=== PATIENT | female | born 1935 | race Caucasian/White ===

== ENCOUNTER 2020-11-04 14:09 | Observation (INO) | payer OTHER, SELFPAY ==
[2020-11-04] VITALS (12 sets, daily range): BP systolic 130–181; BP diastolic 63–83; PULSE 66–81; RESP 12–27; TEMP 36.6–36.8; O2SAT 94–100; BMI 22.6
--- NOTE | 2020-11-04 14:35 | EKG12_ITS ---
Test Reason : Blood Pressure : / mmHG Vent. Rate : 066 BPM Atrial Rate : 066 BPM P-R Int : 160 ms QRS Dur : 102 ms QT Int : 388 ms P-R-T Axes : 038 -26 048 degrees QTc Int : 406 ms Sinus rhythm with marked sinus arrhythmia Otherwise normal ECG Confirmed by ARABELLA GONZALEZ, JERONIMO ([id number]), communications editor KARMA ABAD ([id number]) on 11/09/2020 7:46:02 AM Referred By: Confirmed By:JERONIMO BELL MD
--- NOTE | 2020-11-04 14:40 | RAD_ITS ---
EXAM: XR CHEST, 1 VIEW CLINICAL INDICATION: chest pain TECHNIQUE: Frontal view of the chest. This report was created using [employer] report generation technology. COMPARISON: None. FINDINGS: LUNGS AND PLEURAL SPACES: Unremarkable. No consolidation or edema. No pneumothorax. No effusion. HEART: Unremarkable. Cardiac silhouette not enlarged. MEDIASTINUM: Central airways and mediastinal contour are unremarkable. BONES/JOINTS: Unremarkable. SOFT TISSUES: Unremarkable. RAD/Chest 1 View (Portable) IMPRESSION: No radiographic evidence of acute cardiopulmonary disease. Electronically Signed: Robinson Chakraborty MD at 14:56 EDT , Service support ,
[2020-11-04 14:43] LABS: Basophil# 0.04 X10^3/uL; Basophil% 0.7 % (0-1); Eosinophil# 0.11 X10^3/uL; Eosinophils% 1.9 % (0-5); Hemoglobin 12.7 g/dL (12.0-15.0); Lymphocyte % 19.4 % (19-41); Mean Corp Hgb Conc 33.4 g/dL (32-36); Mean Corpuscular Volume 89.6 fL (81-99); Monocyte# 0.41 X10^3/uL; Monocyte% 7.2 % (0-10); NRBC Flagged by Analyzer 0 % (0-5); Neutrophil % 70.6 % (47-70); Platelet Count 280 K/mm3 (150-450); RBC Distribution Width CV 13.1 % (11.6-14.6); RBC Distribution Width SD 42.5 fl (35.1-43.9); Red Blood Count 4.24 M/mm3 (4.2-5.4); White Blood Count 5.7 K/mm3 (4.4-11.0)
--- NOTE | 2020-11-04 14:47 | ED.VIS.CHEST ---
HPI History of Present Illness Chief Complaint: Chest Pain Informant: patient Onset/Context/Timing Onset: Weeks (2) Activity at onset: gradual Timing: Intermittent and Lasts (2 days) Quality: Positive for Stabbing Location: Left Chest Worsened By: Movement of Torso Relieved By: Nothing Associated Symptoms: Positive for Dyspnea; Negative for Nausea, Vomiting, Diaphoresis, Cough, Fever, Lightheadedness, Acid Reflux and Palpitations Narrative Narrative: Patient presents with chest pain that began approximately 2 months ago. Patient states it has been intermittent. Patient states it has been constant for the past couple days. Patient states the pain is stabbing. Patient states the pain is over the left side of her chest but also there is some mild pain on the right. Patient states her pain is worse with movement. Patient states nothing seems to help with the pain. Patient admits to some shortness of breath because it hurts to take a deep breath. Patient also admits to some palpitations. CVD Risk Factors: Positive for Hypertension and Hypercholesterolemia; Negative for Diabetes, Family History 1' </=55 and Smoking PE Risk Factors: Positive for Prior DVT or PE; Negative for Recent Travel/Surgery, Recent Immobilization, Cancer and OCP + Smoking + >/=35 PFSH PFSH Medical History DVT (deep venous thrombosis) Mandible fracture Myocardial infarct Home Medications aspirin 81 mg PO DAILY 11/04/20 [History Last Taken Unknown] atorvastatin 20 mg PO DAILY 11/04/20 [History Last Taken Unknown] capsicum (cayenne) [[facility] PDR] 894 mg PO DAILY 11/04/20 [History Last Taken Unknown] lisinopril 5 mg PO DAILY 11/04/20 [History Last Taken Unknown] nitroglycerin 0.4 mg SUBLINGUAL Q5M PRN 11/04/20 [History Last Taken Unknown] Allergy/AdvReac Type Severity Reaction Status Date / Time No Known Allergies Allergy Verified 11/04/20 14:12 Social History Smoking Status: Never smoker ROS ROS ED Constitutional Constitutional ED: Denies chills or fever(s) Eyes Eyes: Denies blurry vision or change in vision ENT ENT ED: Denies rhinorrhea or sore throat Cardiovascular Cardiovascular: Reports chest pain and palpitations Respiratory/Chest Respiratory/Chest: Reports dyspnea; Denies cough Gastrointestinal Gastrointestinal: Reports nausea; Denies abdominal pain or vomiting Genitourinary Genitourinary ED: Denies dysuria or hematuria Musculoskeletal Musculoskeletal: Reports back pain; Denies neck pain Integumentary Denies abscess or rash Neurologic Neurologic: Denies headache(s) or weakness Allergic/Immunologic Allergic/Immunologic ED: Denies mouth swelling or urticaria EXAM Physical Exam Const Vital Signs: 11/04/20 14:12 11/04/20 14:22 11/04/20 14:35 Temperature 97.8 F Temperature Source Oral Pulse Rate 66 69 Respiratory Rate 20 H 20 H Respiratory Effort Non-Labored Short of Breath Respiratory Pattern Normal Blood Pressure 151/83 H Blood Pressure Mean 105 Pulse Ox 97 97 98 Oxygen Delivery Method Room Air Room Air Room Air 11/04/20 15:11 11/04/20 16:00 11/04/20 17:02 Temperature Temperature Source Pulse Rate 67 73 72 Respiratory Rate 16 12 27 H Respiratory Effort Respiratory Pattern Blood Pressure 134/70 H 153/69 H 148/79 H Blood Pressure Mean 91 97 102 Pulse Ox 95 96 98 Oxygen Delivery Method Room Air Room Air Room Air 11/04/20 18:00 11/04/20 19:30 11/04/20 20:22 Temperature Temperature Source Pulse Rate 81 70 78 Respiratory Rate 18 18 18 Respiratory Effort Respiratory Pattern Blood Pressure 130/63 H 142/71 H 154/70 H Blood Pressure Mean 85 94 98 Pulse Ox 100 95 98 Oxygen Delivery Method Room Air Room Air Room Air 11/04/20 21:30 11/04/20 22:30 11/04/20 23:02 Temperature 98.2 F Temperature Source Oral Pulse Rate 75 69 71 Respiratory Rate 16 18 18 Respiratory Effort Respiratory Pattern Blood Pressure 181/77 H 161/73 H 165/76 H Blood Pressure Mean 111 102 105 Pulse Ox 96 95 94 Oxygen Delivery Method Room Air Room Air Room Air Positive well nourished and well developed General Appearance ED: well developed HEENT normocephalic and atraumatic Eyes PERRL and EOMs intact bilaterally Neck supple and no JVD Chest Wall inspection of chest normal Chest: tenderness costochondral junction Resp normal respiratory effort and clear to auscultation bilaterally Effort and Inspection: Negative for respiratory distress Cardio regular rate, regular rhythm and no murmurs GI normal to inspection, nondistended, normoactive bowel sounds, soft to palpation, non-tender and non-distended Extremity normal to inspection General Extremety ED: Negative for edema or tenderness General Extremity: Negative for edema Neuro oriented x3, CN's II-XII intact bilaterally and no sensory deficits noted Sensorium / Orientation: awake and alert Motor Exam: strength 5/5 throughout Psych mental status grossly normal Heart Score History: Slightly/Non-Suspicious ECG: Normal Age: >/= 65 years Risk Factors: >/= 3 Risk Factors or History of CAD Troponin: </= Normal Limit Score: 4 MDM MDM MDM Narrative Medical decision making narrative: EKG was obtained. On my interpretation, it showed a normal sinus rhythm with a rate of 66. MA interval, QRS interval, and QTc intervals were all normal. [place] was normal. There are no acute ST or T wave changes. Portable 1 view chest x-ray was obtained. On my interpretation, lung james are clear. There is normal cardiac silhouette. Bony thorax is normal. There is no acute process noted. Radiologist also interpreted the x-ray and agrees. CBC and basic metabolic profile were within normal limits. Initial high-sensitivity troponin was 85. 2-hour repeat high-sensitivity troponin was 88. Family is concerned that the patient was getting distended in her abdomen. Because of this, CT scan of the abdomen pelvis with oral and IV contrast was obtained. There is evidence of gastritis. There is a hemangioma in the liver. There are gallstones noted. There is no acute abnormality noted. This was interpreted by the radiologist and reviewed by myself. Patient was given aspirin here. Discussed with the hospitalist. He will admit the patient to his service. He added on a lipase. This came back elevated at 1410. Patient will be admitted to PCU. Lab Data Attestation: I reviewed the patient's lab results. Labs: Laboratory Results - last 24 hr 11/04/20 11/04/20 11/04/20 13:22 13:22 17:23 WBC 5.7 RBC 4.24 Hgb 12.7 Hct 38.0 MCV 89.6 MCH 30.0 MCHC 33.4 RDW Std Deviation 42.5 RDW Coeff of [place]il[place] 13.1 Plt Count 280 MPV 11.0 Immature Gran % (Auto) 0.200 Neut % (Auto) 70.6 H Lymph % (Auto) 19.4 [place] % (Auto) 7.2 Eos % (Auto) 1.9 Baso % (Auto) 0.7 Absolute Neuts (auto) 4.0 Absolute Lymphs (auto) 1.10 Nucleated RBC % 0 Sodium 141 Potassium 4.0 Chloride 107 Carbon Dioxide 28.0 Anion Gap 6 BUN 15 Creatinine 0.88 Estim Creat Clear Calc 36.55 Est GFR (MDRD) Af Amer 79 Est GFR (MDRD) Non-Af 66 BUN/Creatinine Ratio 17.1 Glucose 145 H Calcium 9.6 Troponin I High Sens 85 H 88 H Lipase 11/04/20 17:23 WBC RBC Hgb Hct MCV MCH MCHC RDW Std Deviation RDW Coeff of [place] Plt Count MPV Immature Gran % (Auto) Neut % (Auto) Lymph % (Auto) [place] % (Auto) Eos % (Auto) Baso % (Auto) Absolute Neuts (auto) Absolute Lymphs (auto) Nucleated RBC % Sodium Potassium Chloride Carbon Dioxide Anion Gap BUN Creatinine Estim Creat Clear Calc Est GFR (MDRD) Af Amer Est GFR (MDRD) Non-Af BUN/Creatinine Ratio Glucose Calcium Troponin I High Sens Lipase 1410 H Radiography Chest X-Ray - ED: 1 View, Read by ED Physician, Read by Radiologist and Normal Diagnostic Testing: Radiology Impression Chest X-Ray 11/04/20 14:40 IMPRESSION: No radiographic evidence of acute cardiopulmonary disease. Electronically Signed: Robinson Chakraborty MD at 14:56 EDT , Service support , Abdomen/Pelvis CT 11/04/20 20:05 IMPRESSION: 1. There is peripheral puddling lesion in the mid aspect of the liver. This suggests a hemangioma. However, other etiologies are not excluded. Scattered poorly defined hypodensities in the liver. Triple phase liver protocol is recommended to evaluate. 2. Gallstones visualized in the gallbladder. 3. Focal wall thickening of the antrum of stomach. This can suggest a gastritis. 4. Constipation. Electronically Signed: Robinson Chakraborty MD at 22:04 EDT , Service support , Discharge Plan Dx/Rx/DC Orders Clinical Impression: Chest pain, Acute pancreatitis Disposition Disposition: Acute Care Hospital [facility] Discharge Date/Time: 11/05/20 00:26
[2020-11-04 15:00] LABS: Anion Gap 6 (5-15); BUN 15 mg/dL (7-18); BUN/Creat Ratio 17.1 RATIO (10-20); Calcium,Total 9.6 mg/dL (8.5-10.1); Chloride 107 mmol/L (98-107); Creatinine, Serum 0.88 mg/dL (0.55-1.02); EST Glomerular Filtration Rate 66 mL/min (>60); Est Glom Filt Rate - Afr Amer 79 mL/min (>60); Estimated Creatinine Clearance 36.55 ml/min; Glucose 145 mg/dL (74-106); Sodium Level 141 mmol/L (136-145); Troponin-I HS 85 pg/mL (3.0-54.0)
[2020-11-04 18:26] LABS: Troponin-I HS 88 pg/mL (3.0-54.0)
--- NOTE | 2020-11-04 20:05 | CT_ITS ---
EXAM: CT ABDOMEN AND PELVIS WITH INTRAVENOUS CONTRAST CLINICAL INDICATION: Abdominal pain -- IV PO Contrast TECHNIQUE: Helically acquired images were obtained of the abdomen and pelvis with intravenous contrast. This CT exam was performed using one or more of the following dose reduction techniques: automated exposure control, adjustment of the mA and/or kV according to patient size, and/or use of iterative reconstruction technique. This report was created using [employer] report generation technology. CONTRAST: Oral and amp; IV Gastrografin and amp; 75mL Isovue-300 COMPARISON: None. FINDINGS: LOWER THORAX: There are coronary arterial calcifications. The heart is enlarged. Lung bases are clear. No significant pericardial effusion. ABDOMEN: LIVER: There is peripheral puddling lesion in the mid aspect of the liver. This suggests a hemangioma. However, other etiologies are not excluded. Scattered poorly defined hypodensities in the liver. Triple phase liver protocol is recommended to evaluate. There is intrahepatic ductal dilation. GALLBLADDER AND BILE DUCTS: Gallstones visualized in the gallbladder. PANCREAS: Unremarkable. No focal cystic or solid mass. SPLEEN: Unremarkable. Normal size without focal cystic or solid mass. ADRENALS: Unremarkable. No nodules. KIDNEYS AND URETERS: Unremarkable. Normal renal size and position. No hydronephrosis. STOMACH AND BOWEL: Focal wall thickening of the antrum of stomach. This can suggest a gastritis. Stool throughout the colon. No stomach or bowel distention. PELVIS: APPENDIX: No evidence of acute appendicitis. BLADDER: Unremarkable. REPRODUCTIVE: The uterus is lobulated in contour. There are multiple partially calcified masses in the uterus. This is consistent for a fibroid/ myomatous uterus. ABDOMEN and PELVIS: INTRAPERITONEAL SPACE: Unremarkable. No ascites or other fluid collection. No free air. BONES/JOINTS: There is bilateral neural foraminal stenosis at L4-5 and L5-S1. Old appearing compression deformity of T12 No suspicious lytic or blastic abnormality. SOFT TISSUES: Unremarkable. No discrete abdominal or pelvic wall hernia. VASCULATURE: There are calcifications of the abdominal aorta. This is consistent for atherosclerotic disease. There is no abdominal aortic aneurysm. LYMPH NODES: Unremarkable. No enlarged lymph nodes. OTHER FINDINGS: Vacuum disc phenomenon. CT/Abdomen/Pelvis WITH Contrast IMPRESSION: 1. There is peripheral puddling lesion in the mid aspect of the liver. This suggests a hemangioma. However, other etiologies are not excluded. Scattered poorly defined hypodensities in the liver. Triple phase liver protocol is recommended to evaluate. 2. Gallstones visualized in the gallbladder. 3. Focal wall thickening of the antrum of stomach. This can suggest a gastritis. 4. Constipation. Electronically Signed: Robinson Chakraborty MD at 22:04 EDT , Service support ,
--- NOTE | 2020-11-04 23:15 | HP.PCM_ITS ---
Documented by User: KACI Dyson 11/04/20 23:30 HPI - General General Date of Admission: 11/04/20 Date of Service: 11/04/20 Chief Complaint: Chest and abdominal pain HPI Narrative KERRY ROGERS, is a 85 F who presents with complaints of intermittent abdominal and chest pain over the past 6 weeks. Patient states that approximately 6 weeks ago she was initiated on medications for hypertension and hyperlipidemia and that symptoms began shortly after medication initiation. Patient reports that prior to this patient was not on any prescription medications. Patient states that she feels that her abdomen is tender and more swollen than it usually is. Patient reports that she does have a history of myocardial infarction on 09/23/2020. Patient denies fever, chills, cough, nausea, vomiting, diarrhea, constipation. [facility] Medical History DVT (deep venous thrombosis) Mandible fracture Myocardial infarct Home Medications aspirin 81 mg PO DAILY 11/04/20 [History Last Taken Unknown] atorvastatin 20 mg PO DAILY 11/04/20 [History Last Taken Unknown] capsicum (cayenne) [[facility] PDR] 894 mg PO DAILY 11/04/20 [History Last Taken Unknown] lisinopril 5 mg PO DAILY 11/04/20 [History Last Taken Unknown] nitroglycerin 0.4 mg SUBLINGUAL Q5M PRN 11/04/20 [History Last Taken Unknown] Allergy/AdvReac Type Severity Reaction Status Date / Time No Known Allergies Allergy Verified 11/04/20 14:12 Social History Smoking Status: Never smoker ROS Constitutional Constitutional: Denies anorexia, chills, fatigue, fever(s), malaise or weakness Cardiovascular Cardiovascular: Reports chest pain; Denies edema, palpitations or syncope Respiratory/Chest Respiratory/Chest: Denies cough, shortness of breath at rest or shortness of breath with exertion Gastrointestinal Gastrointestinal: Reports abdominal pain; Denies constipation, diarrhea, dyspepsia, nausea or vomiting Genitourinary Genitourinary: Denies dysuria Musculoskeletal Musculoskeletal: Denies back pain, extremity pain, joint pain or joint stiffness Integumentary Integumentary: Denies dry skin Neurologic Neurologic: Denies abnormal gait, abnormal speech, confusion or dizziness Psychiatric Psychiatric: Denies anxiety or depression Endocrine Endocrinology: Denies change in body appearance Hematologic/Lymphatic Hematologic/Lymphatic: Denies anemia, easy bleeding or easy bruising Vital Signs Vital Signs Vital Signs: 11/04/20 14:12 11/04/20 14:22 11/04/20 14:35 Temperature 97.8 F Temperature Source Oral Pulse Rate 66 69 Respiratory Rate 20 H 20 H Respiratory Effort Non-Labored Short of Breath Respiratory Pattern Normal Blood Pressure 151/83 H Blood Pressure Mean 105 Pulse Ox 97 97 98 Oxygen Delivery Method Room Air Room Air Room Air 11/04/20 15:11 11/04/20 16:00 11/04/20 17:02 Temperature Temperature Source Pulse Rate 67 73 72 Respiratory Rate 16 12 27 H Respiratory Effort Respiratory Pattern Blood Pressure 134/70 H 153/69 H 148/79 H Blood Pressure Mean 91 97 102 Pulse Ox 95 96 98 Oxygen Delivery Method Room Air Room Air Room Air 11/04/20 18:00 11/04/20 19:30 11/04/20 20:22 Temperature Temperature Source Pulse Rate 81 70 78 Respiratory Rate 18 18 18 Respiratory Effort Respiratory Pattern Blood Pressure 130/63 H 142/71 H 154/70 H Blood Pressure Mean 85 94 98 Pulse Ox 100 95 98 Oxygen Delivery Method Room Air Room Air Room Air 11/04/20 21:30 11/04/20 22:30 11/04/20 23:02 Temperature 98.2 F Temperature Source Oral Pulse Rate 75 69 71 Respiratory Rate 16 18 18 Respiratory Effort Respiratory Pattern Blood Pressure 181/77 H 161/73 H 165/76 H Blood Pressure Mean 111 102 105 Pulse Ox 96 95 94 Oxygen Delivery Method Room Air Room Air Room Air Weight Weight: 119 lb 11.376 oz Body Mass Index (BMI) 22.6 Physical Exam Const alert, oriented x3 and no apparent distress General Appearance: cooperative HEENT normocephalic and head/scalp atraumatic Eyes conjunctivae normal and no scleral icterus Neck supple General: trachea midline Resp normal respiratory effort, normal air movement and clear to auscultation bilaterally Cardio regular rate, regular rhythm, S1 normal heart sound and S2 normal heart sound GI normal to inspection, nondistended, normoactive bowel sounds and soft to palpation Palpation: tender epigastric, LUQ and RUQ Extremity normal capillary refill and no clubbing, cyanosis or edema General Extremity: no tenderness to palpation of joints or extremities Skin General Skin Exam: no breakdown and turgor normal Lesions: no lesions Rashes: no rashes Neuro no focal motor deficits and no sensory deficits noted Speech: speech normal Motor Exam: Negative for general weakness Psych thought process normal, cooperative and affect normal Appearance: appropriate Results Lab / Micro Data Result Diagrams: 11/04/20 13:22 11/04/20 13:22 Labs: Laboratory Results - last 24 hr 11/04/20 13:22: WBC 5.7, RBC 4.24, Hgb 12.7, Hct 38.0, MCV 89.6, MCH 30.0, MCHC 33.4, RDW Std Deviation 42.5, RDW Coeff of [place]ilka 13.1, Plt Count 280, MPV 11.0, Immature Gran % (Auto) 0.200, Neut % (Auto) 70.6 H, Lymph % (Auto) 19.4, [place] % (Auto) 7.2, Eos % (Auto) 1.9, Baso % (Auto) 0.7, Absolute Neuts (auto) 4.0, Absolute Lymphs (auto) 1.10, Nucleated RBC % 0 11/04/20 13:22: Sodium 141, Potassium 4.0, Chloride 107, Carbon Dioxide 28.0, Anion Gap 6, BUN 15, Creatinine 0.88, Estim Creat Clear Calc 36.55, Est GFR (MDRD) Af Amer 79, Est GFR (MDRD) Non-Af 66, BUN/Creatinine Ratio 17.1, Glucose 145 H, Calcium 9.6, Troponin I High Sens 85 H 11/04/20 17:23: Troponin I High Sens 88 H Radiology Impression Chest X-Ray 11/04/20 14:40 IMPRESSION: No radiographic evidence of acute cardiopulmonary disease. Electronically Signed: Robinson Chakraborty MD at 14:56 EDT , Service support , Abdomen/Pelvis CT 11/04/20 20:05 IMPRESSION: 1. There is peripheral puddling lesion in the mid aspect of the liver. This suggests a hemangioma. However, other etiologies are not excluded. Scattered poorly defined hypodensities in the liver. Triple phase liver protocol is recommended to evaluate. 2. Gallstones visualized in the gallbladder. 3. Focal wall thickening of the antrum of stomach. This can suggest a gastritis. 4. Constipation. Electronically Signed: Robinson Chakraborty MD at 22:04 EDT , Service support , Assessment & Plan Assessment/Plan (1) Chest pain: QUALIFIERS: Chest pain type: unspecified Qualified Code(s): R07.9 - Chest pain, unspecified PLAN: 1. Chest pain -Admit to PCU for cardiac monitoring -Continue to trend cardiac enzymes, first 2 levels indeterminate. Labs otherwise within normal limits -Chest x-ray negative -Cardiac diet, NPO at midnight -Stress test ordered for am -PT and OT to eval and treat -Vital signs per protocol -CBC and BMP ordered for a.m. 2. Abdominal pain -Abdomen tender in all upper regions however worse in the epigastric area -CT demonstrates possible gastritis and constipation -Patient will be initiated on pantoprazole. IV dose ordered for tonight, will transition to p.o. in a.m. We will continue all home medications in relation to patient chronic diseases including hypertension hyperlipidemia. DVT prophylaxis-not indicated, encourage ambulation This patient was seen by KACI Dyson under the supervision of Dr. Koroma. Documented by User: Dr. Home Koroma MD 11/05/20 00:57 HPI - General General Date of Admission: 11/04/20 [facility] Medical History DVT (deep venous thrombosis) Mandible fracture Myocardial infarct Home Medications aspirin 81 mg PO DAILY 11/04/20 [History Last Taken Unknown] atorvastatin 20 mg PO DAILY 11/04/20 [History Last Taken Unknown] [facility]enne) [facility]] 894 mg PO DAILY 11/04/20 [History Last Taken Unknown] lisinopril 5 mg PO DAILY 11/04/20 [History Last Taken Unknown] nitroglycerin 0.4 mg SUBLINGUAL Q5M PRN 11/04/20 [History Last Taken Unknown] Allergy/AdvReac Type Severity Reaction Status Date / Time No Known Allergies Allergy Verified 11/04/20 14:12 Social History Smoking Status: Never smoker Results Lab / Micro Data Result Diagrams: 11/04/20 13:22 11/04/20 13:22 Charges/Coding Addendum Addendum: Patient was seen and examined independently. I agree with assessment and plan by KACI Dyson Patient is an 85-year-old female with a significant history of hypertension; hyperlipidemia and [place] who presents emergency department with upper abdominal pain that radiates to her back. The pain is sharp. Her pain is intermittent. Her pains worsens with moving; and improves with not moving. Physical exam: General: Well-nourished, well-developed. Head: Normocephalic, atraumatic, no tenderness Eyes: PERRLA, EOMI ENT, no trauma, moist mucous membranes, no rhinorrhea Neck: Nontender, full range of motion, no spinal tenderness, deformities, step- off CVS: Regular rate and rhythm. S1-S2 present. No murmur, gallop or rub. Respiratory : clear to auscultation bilaterally, chest wall nontender, no wheezing Abdomen: Soft, nontender, nondistended, normal bowel sounds, no masses : Deferred Back: Nontender, no CVA tenderness, no midline spinal tenderness, deformities, step-offs Extremities: Nontender full range of motion, no trauma Skin: Normal color, no trauma, abrasions Neuro: Alert, oriented, cranial nerves II through XII grossly intact. Psychiatry: Normal mood. Normal affect. Not depressed. Not anxious. Intractable abdominal pain Placed on a monitored bed at the PCU Actual CXR image was independently visualized. No acute cardiopulmonary process was noted. I agree with interpretation. Actual EKG tracing was independently visualized. EKG tracing showed sinus arrhythmia. Discussed with Emergency department doctor to give full dose aspirin. ASA 81 mg p.o. daily ordered SL NTG 0.4 mg prn as needed for chest pain ordered We will check lipid panel. Initial high sensitive troponin is mildly elevated; trend. Stat EKG as needed for chest pain Stress test in the AM if the cardiac enzymes are stable Give Protonix. A CT abdomen pelvis with gallstones in gallbladder; thickening of antrum of stomach suggestive of gastritis; and lesion in the liver for which a triple phase protocol was recommended. CT of abdomen triple phase liver protocol ordered. Lipase ordered returned elevated. Unremarkable per radiologist interpretation. Because of patient age cautious use of fluid ordered. Morphine as needed ordered. Repeat lipase in a.m. Hypertension Blood pressure is not within goal Lisinopril continued. Trend blood pressure and adjust blood pressure medications. DVT prophylaxis ordered: SCD Visit Charges OBSV E&M: 46905 Initial observation care L3
[2020-11-04] MEDS: Aspirin 81 MG TAB.CHEW 324 MG PO (23:39)
[2020-11-05 00:07] LABS: Lipase 1410 U/L (73-393)
[2020-11-05 00:40] VITALS: BP 103/48; PULSE 57; RESP 16; TEMP 36.6; O2SAT 96
[2020-11-05 01:09] VITALS: BMI 22.0
--- NOTE | 2020-11-05 01:09 | EKG12_ITS ---
Test Reason : CP ADMISSION Blood Pressure : / mmHG Vent. Rate : 074 BPM Atrial Rate : 074 BPM P-R Int : 170 ms QRS Dur : 106 ms QT Int : 396 ms P-R-T Axes : 049 -28 049 degrees QTc Int : 439 ms Sinus rhythm with marked sinus arrhythmia Septal infarct , age undetermined Abnormal ECG When compared with ECG of 04-NOV-2020 14:18, MANUAL COMPARISON REQUIRED, DATA IS UNCONFIRMED Confirmed by ARABELLA GONZALEZ, JERONIMO ([id number]), digital editor KARMA ABAD ([id number]) on 11/05/2020 12:39:48 PM Referred By: AYANNA Confirmed By:JERONIMO BELL MD
[2020-11-05 01:30] VITALS: PULSE 83
--- NOTE | 2020-11-05 01:32 | PCS.PANDOC ---
PANDEMIC DOCUMENTATION INITIATED: Date: 09/21/2020 Time: 190
[2020-11-05 01:44] LABS: Troponin-I HS 95 pg/mL (3.0-54.0)
[2020-11-05] MEDS: Ondansetron 4 MG/2 ML Vial IV (01:57)
[2020-11-05] MEDS: Morphine 2 MG/ML Syringe 1 MG IV (01:57)
[2020-11-05] MEDS: 0.9% Normal Saline 1,000 ML 100 ML IV (01:57)
[2020-11-05 02:48] VITALS: PULSE 64; RESP 16; O2SAT 96
[2020-11-05] MEDS: Aspirin E.C. 81 MG Tablet PO (06:06)
[2020-11-05] MEDS: Lisinopril 5 MG Tablet PO (06:07)
[2020-11-05 06:35] VITALS: BP 171/68; PULSE 64; RESP 16; TEMP 36.6; O2SAT 95
[2020-11-05 06:49] LABS: Absolute Lymphocyte Count 1.46 X10^3/uL (0.83-4.51); Absolute Neutrophil Count 2.8 X10^3/uL (2.0-7.7); Basophil# 0.02 X10^3/uL; Basophil% 0.4 % (0-1); Eosinophil# 0.12 X10^3/uL; Eosinophils% 2.4 % (0-5); Hematocrit 35.3 % (37-47); Hemoglobin 11.5 g/dL (12.0-15.0); Lymphocyte # 1.46 X10^3/ul (0.83-4.51); Lymphocyte % 29.8 % (19-41); Mean Corp Hgb Conc 32.6 g/dL (32-36); Mean Corpuscular Hgb 30.3 pg (27.0-32.0); Mean Corpuscular Volume 92.9 fL (81-99); Mean Platelet Vol. 10.2 fl (6.2-12.0); Monocyte# 0.47 X10^3/uL; Monocyte% 9.6 % (0-10); NRBC Flagged by Analyzer 0 % (0-5); Neutrophil # 2.82 X10^3/uL (2.7-7.7); Neutrophil % 57.6 % (47-70); Platelet Count 241 K/mm3 (150-450); RBC Distribution Width CV 13.1 % (11.6-14.6); RBC Distribution Width SD 44.4 fl (35.1-43.9); White Blood Count 4.9 K/mm3 (4.4-11.0)
[2020-11-05 07:22] LABS: Anion Gap 7 (5-15); BUN 13 mg/dL (7-18); BUN/Creat Ratio 15.7 RATIO (10-20); Calcium,Total 8.7 mg/dL (8.5-10.1); Chloride 106 mmol/L (98-107); Cholesterol 127 mg/dL (200); Creatinine, Serum 0.83 mg/dL (0.55-1.02); EST Glomerular Filtration Rate 70 mL/min (>60); Est Glom Filt Rate - Afr Amer 84 mL/min (>60); Estimated Creatinine Clearance 36.89 ml/min; Glucose 85 mg/dL (74-106); High Density Lipoprotein 66 mg/dL; Potassium 4.1 mmol/L (3.5-5.1); Sodium Level 141 mmol/L (136-145); Triglycerides 54 mg/dL; Very Low Density Lipoprotein 11 mg/dL (5-40)
[2020-11-05 07:25] VITALS: PULSE 66
[2020-11-05 07:26] LABS: Lipase 214 U/L (73-393)
[2020-11-05] MEDS: Pantoprazole Sodium 20 MG Tablet PO (07:52)
[2020-11-05 08:17] VITALS: O2SAT 95
--- NOTE | 2020-11-05 08:22 | PN.HOSP_ITS ---
Subjective Subjective Still with chest and abdominal pain. Had a stress test 6 weeks ago at [facility] that was normal. They do not want another stress. Objective Data Objective Data Vital Signs: Vital Signs Temp Pulse Resp BP Pulse Ox 36.6 C 66 16 171/68 H 95 11/05/20 06:35 11/05/20 07:25 11/05/20 06:35 11/05/20 06:35 11/05/20 08:17 Oxygen Delivery Method Room Air Weight: 51.165 kg Body Mass Index (BMI) 22.0 Intake & Output: Intake and Output for Last 24 Hours 11/03/20 11/04/20 11/05/20 23:59 23:59 23:59 Intake Total 110 / 110 Balance 110 / 110 Lab / Micro Data Result Diagrams: 11/05/20 06:20 11/05/20 06:20 Labs: Laboratory Results - last 24 hr 11/04/20 13:22: WBC 5.7, RBC 4.24, Hgb 12.7, Hct 38.0, MCV 89.6, MCH 30.0, MCHC 33.4, RDW Std Deviation 42.5, RDW Coeff of Yamilka 13.1, Plt Count 280, MPV 11.0, Immature Gran % (Auto) 0.200, Neut % (Auto) 70.6 H, Lymph % (Auto) 19.4, Baldwin % (Auto) 7.2, Eos % (Auto) 1.9, Baso % (Auto) 0.7, Absolute Neuts (auto) 4.0, Absolute Lymphs (auto) 1.10, Nucleated RBC % 0 11/04/20 13:22: Sodium 141, Potassium 4.0, Chloride 107, Carbon Dioxide 28.0, An ion Gap 6, BUN 15, Creatinine 0.88, Estim Creat Clear Calc 36.55, Est GFR (MDRD) Af Amer 79, Est GFR (MDRD) Non-Af 66, BUN/Creatinine Ratio 17.1, Glucose 145 H, Calcium 9.6, Troponin I High Sens 85 H 11/04/20 17:23: Troponin I High Sens 88 H 11/04/20 17:23: Lipase 1410 H 11/05/20 01:20: Troponin I High Sens 95 H 11/05/20 06:20: WBC 4.9, RBC 3.80 L, Hgb 11.5 L, Hct 35.3 L, MCV 92.9, MCH 30.3, MCHC 32.6, RDW Std Deviation 44.4 H, RDW Coeff of Yamilka 13.1, Plt Count 241, MPV 10.2, Immature Gran % (Auto) 0.200, Neut % (Auto) 57.6, Lymph % (Auto) 29.8, Baldwin % (Auto) 9.6, Eos % (Auto) 2.4, Baso % (Auto) 0.4, Absolute Neuts (auto) 2.8, Absolute Lymphs (auto) 1.46, Nucleated RBC % 0 11/05/20 06:20: Sodium 141, Potassium 4.1, Chloride 106, Carbon Dioxide 28.0, Anion Gap 7, BUN 13, Creatinine 0.83, Estim Creat Clear Calc 36.89, Est GFR (MDRD) Af Amer 84, Est GFR (MDRD) Non-Af 70, BUN/Creatinine Ratio 15.7, Glucose 85, Calcium 8.7, Triglycerides 54, Cholesterol 127, LDL Cholesterol 50, VLDL Cholesterol 11, HDL Cholesterol 66 11/05/20 06:20: Lipase 214 Radiography Diagnostic Testing: Radiology Impression Chest X-Ray 11/04/20 14:40 IMPRESSION: No radiographic evidence of acute cardiopulmonary disease. Electronically Signed: Robinson Chakraborty MD at 14:56 EDT , Service support , Abdomen/Pelvis CT 11/04/20 20:05 IMPRESSION: 1. There is peripheral puddling lesion in the mid aspect of the liver. This suggests a hemangioma. However, other etiologies are not excluded. Scattered poorly defined hypodensities in the liver. Triple phase liver protocol is recommended to evaluate. 2. Gallstones visualized in the gallbladder. 3. Focal wall thickening of the antrum of stomach. This can suggest a gastritis. 4. Constipation. Electronically Signed: Robinson Chakraborty MD at 22:04 EDT , Service support , Physical Exam Const alert HEENT Head and Scalp: normocephalic Resp normal respiratory effort, no retractions, no use of accessory muscles and clear to auscultation bilaterally Cardio regular rate, regular rhythm, S1 normal heart sound and S2 normal heart sound GI normal to inspection, nondistended, normoactive bowel sounds, soft to palpation, non-tender and non-distended Extremity normal to inspection Skin no rashes or lesions noted and no wounds Neuro Sensorium / Orientation: awake and alert Psych Psych Narrative: flat affect Assessment & Plan Assessment/Plan (1) Acute pancreatitis: QUALIFIERS: Pancreatitis type: unspecified pancreatitis type Acute pancreatitis complication: no infection or necrosis Qualified Code(s): K85.90 - Acute pancreatitis without necrosis or infection, unspecified (2) Chest pain: QUALIFIERS: Chest pain type: unspecified Qualified Code(s): R07.9 - Chest pain, unspecified PLAN: 1. acute pancreatitis * lipase went from 1410 to 214 * denies alcohol consumption * concern for GS pancreatitis. Check US to eval for cholelithiasis 2. Atypical chest pain * troponins slightly elevated * had normal stress test 6 weeks ago at [facility], records requested * Pt and dtr have declined to have stress test here * EKG reviewed and shows NSR with IRBBB. May need an echo, but will await records. 3. Abdominal pain * unclear etiology: pancreatitis v gastritis v other * check US to eval GB * continue PPI for possible gastritis * may need Gen surg or GI input * 3-phase CT to eval liver lesions (suspect hemangiomas) 4. Moderate protein malnutrition * advance diet * supplements * nutrition 5. VTE prophylaxis * [facility] Dtr was asking that testing be done at 1800 today so they could leave because she does not want to leave her mother alone. I told them that I do not know what the testing will show and therefore cannot guarantee she will be ready for discharge by then. I informed them that they have every right to refuse treatment or testing and are welcome to leave AMA if they cannot stay. Charges/Coding Visit Charges OBSV E&M: 83738 Subsequent observation care L2
--- NOTE | 2020-11-05 10:30 | NURSING ---
0910 told patient and daughter plan on ultrasound about 1500
--- NOTE | 2020-11-05 10:31 | NURSING ---
daughter called states patient and her do not want to wait for testing will follow up with pcp but would like something to go home with for pain
--- NOTE | 2020-11-05 16:03 | PCM.DC.SUM ---
Providers Date of Admission: 11/04/20 Primary Care Physician: Dr. Yo Byers MD Reason For Visit: CHEST PAIN Diagnosis Discharge Diagnosis (1) Acute pancreatitis: Status: Acute Code(s): K85.90 - Acute pancreatitis without necrosis or infection, unspecified Qualifiers: Pancreatitis type: unspecified pancreatitis type Acute pancreatitis complication: no infection or necrosis Qualified Code(s): K85.90 - Acute pancreatitis without necrosis or infection, unspecified (2) Chest pain: Status: Acute Code(s): R07.9 - Chest pain, unspecified Qualifiers: Chest pain type: unspecified Qualified Code(s): R07.9 - Chest pain, unspecified Medications at Discharge Home Medications aspirin 81 mg PO DAILY 11/04/20 atorvastatin 20 mg PO DAILY 11/04/20 capsicum (cayenne) [Cayenne PDR] 894 mg PO DAILY 11/04/20 lisinopril 5 mg PO DAILY 11/04/20 nitroglycerin 0.4 mg SUBLINGUAL Q5M PRN 11/04/20 Hospital Course Summary of Care Provided Minutes Spent on Discharge: 35 Hospital Course: Patient presents with chest and abdominal pain. Patient had some mild elevation of her lipase which did trend down. Patient had a stress test ordered but it was canceled by the patient because she stated that she had one done 6 weeks prior at [place]. She said that she had abnormal troponins at that time. Recommend additional work-up including ultrasound. Patient and her daughter decided to go elsewhere and left AGAINST MEDICAL ADVICE before additional work-up could be performed. Weight / BMI Weight Weight: 51.165 kg Body Mass Index (BMI) 22.0 ABG / Lab / Microbiology Data Result Diagrams: 11/05/20 06:20 11/05/20 06:20 Laboratory: Laboratory Results - last 24 hr 11/04/20 17:23: Troponin I High Sens 88 H 11/04/20 17:23: Lipase 1410 H 11/05/20 01:20: Troponin I High Sens 95 H 11/05/20 06:20: WBC 4.9, RBC 3.80 L, Hgb 11.5 L, Hct 35.3 L, MCV 92.9, MCH 30.3, MCHC 32.6, RDW Std Deviation 44.4 H, RDW Coeff of Yamilka 13.1, Plt Count 241, MPV 10.2, Immature Gran % (Auto) 0.200, Neut % (Auto) 57.6, Lymph % (Auto) 29.8, Nance % (Auto) 9.6, Eos % (Auto) 2.4, Baso % (Auto) 0.4, Absolute Neuts (auto) 2.8, Absolute Lymphs (auto) 1.46, Nucleated RBC % 0 11/05/20 06:20: Sodium 141, Potassium 4.1, Chloride 106, Carbon Dioxide 28.0, Anion Gap 7, BUN 13, Creatinine 0.83, Estim Creat Clear Calc 36.89, Est GFR (MDRD) Af Amer 84, Est GFR (MDRD) Non-Af 70, BUN/Creatinine Ratio 15.7, Glucose 85, Calcium 8.7, Triglycerides 54, Cholesterol 127, LDL Cholesterol 50, VLDL Cholesterol 11, HDL Cholesterol 66 11/05/20 06:20: Lipase 214 Radiography Diagnostic Testing: Radiology Impression Abdomen/Pelvis CT 11/04/20 20:05 IMPRESSION: 1. There is peripheral puddling lesion in the mid aspect of the liver. This suggests a hemangioma. However, other etiologies are not excluded. Scattered poorly defined hypodensities in the liver. Triple phase liver protocol is recommended to evaluate. 2. Gallstones visualized in the gallbladder. 3. Focal wall thickening of the antrum of stomach. This can suggest a gastritis. 4. Constipation. Electronically Signed: Robinson Chakraborty MD at 22:04 EDT , Service support , Meaningful Use Info Meaningful Use Diagnoses (Choose all that apply): None applicable Discharge Plan Admission Admit Date/Time: 11/04/20 23:07 Attending Provider: Yo Capellan Primary Care Provider: Yo Byers Discharge Orders/Prescriptions Prescriptions: No Action atorvastatin 20 mg tablet 20 mg PO DAILY RF: 0 aspirin 81 mg tablet,delayed release (DR/EC) 81 mg PO DAILY RF: 0 Cayenne PDR 447 mg Capsule 894 mg PO DAILY RF: 0 nitroglycerin 0.4 mg Tablet, Sublingual 0.4 mg SUBLINGUAL Q5M PRN (Reason: Chest Pain) RF: 0 lisinopril 5 mg tablet 5 mg PO DAILY RF: 0 Referrals / Follow Up: Yo Byers MD [Primary Care Provider] - Disposition Disposition (needs filled in before D/C Order can be placed): Against Medical Advice Charges/Coding Visit Charges Inpatient E&M: 18384 Disch Hosp
== END 2020-11-05 11:14 | disposition left against medical advice (07) ==
LOC: ED 15:24 → PCU 11-05 04:08
PROVIDERS: Nurse Practitioner Family; Admitting Provider Hospitalist; Emergency Provider Emergency Medicine; PCP Orthopaedic Surgery
DX: K85.90 Acute pancreatitis without necrosis or infection, unspecified (principal); R07.89 Other chest pain; R06.00 Dyspnea, unspecified; I25.2 Old myocardial infarction; I10 Essential (primary) hypertension; E78.5 Hyperlipidemia, unspecified; Z79.899 Other long term (current) drug therapy; Z79.82 Long term (current) use of aspirin; Z86.718 Personal history of other venous thrombosis and embolism
CPT/HCPCS: 36415; 71045; 74177; 80048; 80061; 83690; 84484; 85025; 93005; 96361; 96365; 96375; 99218; 99285; J7030; Q9967; A4216; G0378; J2405; J2785